=== PATIENT | female | born 1990 | race American Indian/Alaskan Native ===

== ENCOUNTER 2016-07-07 03:36 | Emergency (ER) | payer OTHER ==
[2016-07-07 03:58] VITALS: BP 122/76
[2016-07-07] MEDS ORDERED: TYLENOL PO ONE (03:59)
[2016-07-07] MEDS ORDERED: TYLENOL ONE (04:01)
[2016-07-07 04:43] LABS: Basophils % (Auto) 0.3 % (0.0-1.8); Eosinophils % (Auto) 1.4 % (0.0-4.3); Hemoglobin 11.8 gm/dl (10.1-14.3); Mean Corpuscular HGB Conc 33 % (30-34); Mean Corpuscular Hemoglobin 28 pg (28-32); Mean Corpuscular Volume 86 fl (79-97); Platelet Count 288 K/mm3 (140-440); Red Blood Count 4.18 M/mm3 (3.65-5.03); Red Cell Distribution Width 12.2 % (13.2-15.2); White Blood Count 8.1 K/mm3 (4.5-11.0)
[2016-07-07 04:48] LABS: Alanine Aminotransferase 37 units/L (7-56); Albumin 3.6 g/dL (3.9-5); Albumin/Globulin Ratio 1.2 %; Alkaline Phosphatase 105 units/L (35-129); Blood Urea Nitrogen 4 mg/dL (7-17); Carbon Dioxide 24 mmol/L (22-30); Glucose 89 mg/dL (65-100); Lipase 30 units/L (13-60); Total Protein 6.7 g/dL (6.3-8.2)
[2016-07-07 04:49] LABS: Anion Gap 17 mmol/L; Chloride 101.8 mmol/L (98-107); Potassium 3.4 mmol/L (3.6-5.0); Sodium 139 mmol/L (137-145)
== END 2016-07-07 04:51 | disposition left against medical advice (07) ==
LOC: ED 03:36
DX: R10.9 Unspecified abdominal pain (principal); R07.9 Chest pain, unspecified; Z53.21 Procedure and treatment not carried out due to patient leaving prior to being seen by health care provider
CPT/HCPCS: 36415; 80053; 83690; 85025; 93005; 93010